=== PATIENT | female | born 1955 | race Caucasian/White ===

== ENCOUNTER 2022-12-21 21:46 | Inpatient (IN) | payer MEDICARE ==
[2022-12-22 00:58] VITALS: BMI 31.6
[2022-12-22] MEDS ORDERED: Ondansetron PF 4 MG/2 ML Vial IVP PRN (02:17)
[2022-12-22] MEDS ORDERED: Calcium Carbonate 500 MG ChewTAB PO PRN (02:17)
[2022-12-22] MEDS ORDERED: Ondansetron ODT 4 MG TAB PO PRN (02:17)
[2022-12-22] MEDS ORDERED: Polyethylene Glycol 3350 17 GM Packet PO PRN (02:25)
[2022-12-22] MEDS ORDERED: Sodium Chloride 0.9% 1,000 ML IV SCH (02:30)
[2022-12-22] MEDS: Morphine 2 MG/ML VIAL SLOW IVP PRN ×3 (02:53→12:11)
[2022-12-22 05:43] LABS: #Eosinphils 0.1 thou/uL (0.0-0.7); #Monocytes 0.4 thou/uL (0.11-0.59); #Neutrophils 1.5 thou/uL (1.40-6.50); %Basophils 0.5 % (0.0-1.0); %Eosinophils 1.9 % (0.0-10.0); %Lymphocytes 48.5 % (21.0-51.0); %Monocytes 9.4 % (0.0-10.0); %Neutrophils 39.4 % (42.0-75.0); Hematocrit 37.8 % (36.0-47.0); Hemoglobin 12.5 g/dL (12.0-16.0); Mean Corpuscular HGB CONC 33.1 g/dL (32.0-36.0); Mean Corpuscular Hemoglobin 31.2 pg (27.0-31.0); Mean Corpuscular Volume 94.3 fl (78.0-98.0); Mean Platelet Volume 9.1 fL (7.4-10.4); Platelet Count 247 10x3/uL (130-400); Red Blood Cell (RBC) Count 4.01 mill/uL (4.20-5.40); White Blood Cell (WBC) Count 3.7 10x3/uL (4.8-10.8)
[2022-12-22] MEDS: HYDROcodone/Acetaminophen 10/325 mg Tablet PO PRN ×4 (05:53→23:24)
[2022-12-22 05:54] LABS: Prothrombin Time 13.6 sec (12.0-14.7)
[2022-12-22 05:55] LABS: PTT 24.3 sec (22.9-36.1)
[2022-12-22 06:04] LABS: Anion Gap 15 mmol/L (10-20); BUN (Urea Nitrogen) 12 mg/dL (9.8-20.1); Calc. Creatinine Clearance 99 mL/min (70-130); Calcium 9.4 mg/dL (7.8-10.44); Carbon Dioxide 27 mmol/L (23-31); Chloride 105 mmol/L (98-107); Estimated GFR 82; Glucose 81 mg/dL (80-115); Magnesium 1.9 mg/dL (1.6-2.6); Potassium 3.5 mmol/L (3.5-5.1); Sodium 143 mmol/L (136-145)
[2022-12-22] MEDS: Calcium Carbonate 500 MG TAB PO SCH (10:03)
[2022-12-22] MEDS: FLUoxetine HCl 20 MG CAP PO SCH (10:03)
[2022-12-22] MEDS: Senokot S 8.6-50 MG TAB PO SCH ×2 (10:04→21:17)
[2022-12-22] MEDS: Gabapentin 300 MG CAP PO SCH ×3 (10:04→21:17)
[2022-12-22] MEDS: Fluticasone Propionate Nasal Spray 16 gm Bottle NASAL SCH (10:05)
[2022-12-22] MEDS: Azelastine 137 MCG/NASAL Spray 30 ML NS SCH ×2 (10:06→21:17)
[2022-12-22] MEDS: Cholecalciferol 1,000 UNITS (25 MCG) TAB PO SCH (21:17)
[2022-12-22] MEDS: Nitrofurantoin Monohyd/M-Cryst 100 MG CAP PO SCH (21:17)
[2022-12-23] MEDS: HYDROcodone/Acetaminophen 10/325 mg Tablet PO PRN ×3 (07:03→20:11)
[2022-12-23] MEDS: Gabapentin 300 MG CAP PO SCH ×3 (09:21→20:10)
[2022-12-23] MEDS: FLUoxetine HCl 20 MG CAP PO SCH (09:21)
[2022-12-23] MEDS: Senokot S 8.6-50 MG TAB PO SCH ×2 (09:21→20:13)
[2022-12-23] MEDS: Calcium Carbonate 500 MG TAB PO SCH (09:21)
[2022-12-23] MEDS: Azelastine 137 MCG/NASAL Spray 30 ML NS SCH ×2 (09:24→20:13)
[2022-12-23] MEDS: Fluticasone Propionate Nasal Spray 16 gm Bottle NASAL SCH (09:25)
[2022-12-23] MEDS: Nitrofurantoin Monohyd/M-Cryst 100 MG CAP PO SCH (20:09)
[2022-12-23] MEDS: Cholecalciferol 1,000 UNITS (25 MCG) TAB PO SCH (20:09)
[2022-12-23] MEDS: Melatonin 3 MG TAB PO PRN (21:31)
[2022-12-24] MEDS: HYDROcodone/Acetaminophen 10/325 mg Tablet PO PRN ×4 (02:19→20:32)
[2022-12-24] MEDS: FLUoxetine HCl 20 MG CAP PO SCH (08:45)
[2022-12-24] MEDS: Gabapentin 300 MG CAP PO SCH ×3 (08:45→20:24)
[2022-12-24] MEDS: Senokot S 8.6-50 MG TAB PO SCH ×2 (08:46→20:25)
[2022-12-24] MEDS: Calcium Carbonate 500 MG TAB PO SCH (08:46)
[2022-12-24] MEDS: Fluticasone Propionate Nasal Spray 16 gm Bottle NASAL SCH (08:51)
[2022-12-24 10:39] LABS: SARS-CoV-2 NAA Rapid Test Not Detected (NotDetected)
[2022-12-24] MEDS: FLU VACC QS2023(65UP)/MF59C/PF 60 MCG/0.5 ML SYRINGE IM ONE (10:57)
[2022-12-24] MEDS: Azelastine 137 MCG/NASAL Spray 30 ML NS SCH ×2 (12:04→20:25)
[2022-12-24] MEDS: Nitrofurantoin Monohyd/M-Cryst 100 MG CAP PO SCH (20:24)
[2022-12-24] MEDS: Cholecalciferol 1,000 UNITS (25 MCG) TAB PO SCH (20:24)
[2022-12-24] MEDS: Melatonin 3 MG TAB PO PRN (21:57)
[2022-12-25] MEDS: HYDROcodone/Acetaminophen 10/325 mg Tablet PO PRN ×4 (03:06→20:52)
[2022-12-25] MEDS: Gabapentin 300 MG CAP PO SCH ×3 (09:33→20:52)
[2022-12-25] MEDS: Calcium Carbonate 500 MG TAB PO SCH (09:34)
[2022-12-25] MEDS: FLUoxetine HCl 20 MG CAP PO SCH (09:34)
[2022-12-25] MEDS: Fluticasone Propionate Nasal Spray 16 gm Bottle NASAL SCH (09:36)
[2022-12-25] MEDS: Senokot S 8.6-50 MG TAB PO SCH ×2 (09:36→20:53)
[2022-12-25] MEDS: Azelastine 137 MCG/NASAL Spray 30 ML NS SCH ×2 (09:36→20:50)
[2022-12-25] MEDS: Acetaminophen 325 MG TAB PO PRN ×2 (12:33→18:04)
[2022-12-25] MEDS: Nitrofurantoin Monohyd/M-Cryst 100 MG CAP PO SCH (20:53)
[2022-12-25] MEDS: Cholecalciferol 1,000 UNITS (25 MCG) TAB PO SCH (20:54)
[2022-12-25] MEDS: Melatonin 3 MG TAB PO PRN (21:00)
[2022-12-26] MEDS: HYDROcodone/Acetaminophen 10/325 mg Tablet PO PRN ×4 (03:34→22:07)
[2022-12-26] MEDS: Senokot S 8.6-50 MG TAB PO SCH (08:43)
[2022-12-26] MEDS: Calcium Carbonate 500 MG TAB PO SCH (08:43)
[2022-12-26] MEDS: Acetaminophen 325 MG TAB PO PRN ×2 (08:43→15:11)
[2022-12-26] MEDS: Gabapentin 300 MG CAP PO SCH ×3 (08:43→20:58)
[2022-12-26] MEDS: FLUoxetine HCl 20 MG CAP PO SCH (08:43)
[2022-12-26] MEDS: Fluticasone Propionate Nasal Spray 16 gm Bottle NASAL SCH (08:44)
[2022-12-26] MEDS: Azelastine 137 MCG/NASAL Spray 30 ML NS SCH (08:45)
[2022-12-26] MEDS: Cholecalciferol 1,000 UNITS (25 MCG) TAB PO SCH (20:58)
[2022-12-26] MEDS: Cyclobenzaprine 10 MG TAB PO PRN (20:58)
[2022-12-26] MEDS: Nitrofurantoin Monohyd/M-Cryst 100 MG CAP PO SCH (20:58)
[2022-12-26] MEDS: Melatonin 3 MG TAB PO PRN (21:12)
[2022-12-27] MEDS: Azelastine 137 MCG/NASAL Spray 30 ML NS SCH ×3 (01:06→20:38)
[2022-12-27] MEDS: Senokot S 8.6-50 MG TAB PO SCH ×3 (01:06→20:37)
[2022-12-27] MEDS: HYDROcodone/Acetaminophen 10/325 mg Tablet PO PRN ×4 (04:43→22:13)
[2022-12-27] MEDS: Calcium Carbonate 500 MG TAB PO SCH (08:57)
[2022-12-27] MEDS: Gabapentin 300 MG CAP PO SCH ×3 (08:57→20:38)
[2022-12-27] MEDS: Fluticasone Propionate Nasal Spray 16 gm Bottle NASAL SCH (08:58)
[2022-12-27] MEDS: FLUoxetine HCl 20 MG CAP PO SCH (08:58)
[2022-12-27] MEDS: Acetaminophen 325 MG TAB PO PRN (09:05)
[2022-12-27] MEDS: Cyclobenzaprine 10 MG TAB PO PRN ×2 (12:32→19:09)
[2022-12-27] MEDS: Nitrofurantoin Monohyd/M-Cryst 100 MG CAP PO SCH (20:37)
[2022-12-27] MEDS: Cholecalciferol 1,000 UNITS (25 MCG) TAB PO SCH (20:38)
[2022-12-27] MEDS: Melatonin 3 MG TAB PO PRN (22:13)
[2022-12-28] MEDS: HYDROcodone/Acetaminophen 10/325 mg Tablet PO PRN ×3 (04:25→16:04)
[2022-12-28] MEDS: Senokot S 8.6-50 MG TAB PO SCH (08:14)
[2022-12-28] MEDS: Cyclobenzaprine 10 MG TAB PO PRN ×2 (08:14→15:41)
[2022-12-28] MEDS: FLUoxetine HCl 20 MG CAP PO SCH (08:14)
[2022-12-28] MEDS: Acetaminophen 325 MG TAB PO PRN ×2 (08:14→14:04)
[2022-12-28] MEDS: Gabapentin 300 MG CAP PO SCH ×2 (08:15→14:04)
[2022-12-28] MEDS: Azelastine 137 MCG/NASAL Spray 30 ML NS SCH (08:16)
[2022-12-28] MEDS: Fluticasone Propionate Nasal Spray 16 gm Bottle NASAL SCH (08:16)
[2022-12-28] MEDS: Calcium Carbonate 500 MG TAB PO SCH (08:16)
[2022-12-28] MEDS ORDERED: FLU VACC QS2023-24(6MOS UP)/PF 60 MCG/0.5 ML SYRINGE IM ONE (17:27)
[2022-12-28] MEDS: FLU VACC QS2023(65UP)/MF59C/PF 60 MCG/0.5 ML SYRINGE IM ONE (17:34)
[2022-12-28 19:28] VITALS: BP 120/82; TEMP 98.4
[2022-12-31] MEDS ORDERED: FLU VACC QS2023(65UP)/MF59C/PF 60 MCG/0.5 ML SYRINGE IM ONE (17:45)
== END 2022-12-28 19:30 | DRG 552 ==
LOC: SURG A 12-22 00:25
PROVIDERS: ADMIT Student in an Organized Health Care Education/Training Program; ATTEND Internal Medicine
PROC: 5A09357 Assistance with Respiratory Ventilation, Less than 24 Consecutive Hours, Continuous Positive Airway Pressure (ICD-10-PCS; principal; 2022-12-24)
DX: M48.061 Spinal stenosis, lumbar region without neurogenic claudication (principal); I10 Essential (primary) hypertension; K21.9 Gastro-esophageal reflux disease without esophagitis; E66.9 Obesity, unspecified; Z68.31 Body mass index [BMI] 31.0-31.9, adult; J30.2 Other seasonal allergic rhinitis; F41.9 Anxiety disorder, unspecified; G47.33 Obstructive sleep apnea (adult) (pediatric); F32.A Depression, unspecified; Z88.0 Allergy status to penicillin; Z88.2 Allergy status to sulfonamides; Z88.8 Allergy status to other drugs, medicaments and biological substances; Z88.1 Allergy status to other antibiotic agents; Z79.899 Other long term (current) drug therapy; Z90.710 Acquired absence of both cervix and uterus; Z98.890 Other specified postprocedural states; Z11.52 Encounter for screening for COVID-19
CPT/HCPCS: 36415; 72148; 80048; 83735; 85025; 85610; 85730; 90471; 90694; 93005; 93010; 94660; G0008; J2272; J7050; U0002

== ENCOUNTER 2024-09-26 08:48 | Outpatient (CLI) | payer MEDICARE ==
[2024-09-26] MEDS ORDERED: Barium Sulfate 96% 176 GM BOT (xray ONLY) ONE (08:56)
[2024-09-26] MEDS ORDERED: E-Z-HD 98% W/W 340GM BOT (x-ray ONLY) ONE (08:56)
== END 2024-09-26 08:49 | disposition home or self-care (01) ==
LOC: RAD 08:48
PROVIDERS: ATTEND Otolaryngology Otolaryngic Allergy
DX: R22.1 Localized swelling, mass and lump, neck (principal)
CPT/HCPCS: 74220